=== PATIENT | male | born 1960 | race Caucasian/White ===

== ENCOUNTER 2018-01-17 19:27 | Observation (INO) | payer OTHER ==
[~2018-01-17] VITALS: Ht 180.3 cm; Wt 70.8 kg
[2018-01-17 19:30] VITALS: BP 128/80
[2018-01-17] MEDS ORDERED: KLONOPIN1 MG PO (19:43)
[2018-01-17] MEDS ORDERED: LISINOPRIL-HCT1 EACH PO (19:45)
[2018-01-17 20:23] LABS: ABSOLUTE EOSINOPHILS 0.1 thou/uL (0.0-0.7); ABSOLUTE LYMPHOCYTES 1.3 thou/uL (0.8-5.3); ABSOLUTE MONOCYTES 0.7 thou/uL (0.0-1.2); ABSOLUTE NEUTROPHILS 4.2 thou/uL (1.6-8.1); BASOPHILS 0.7 %; HEMATOCRIT 43.1 % (42.0-52.0); HEMOGLOBIN 14.4 gm/dL (14.0-18.0); LYMPHOCYTES 20.4 %; MCH 29.4 pg (26.0-34.0); MCHC 33.4 g/dL (28.0-37.0); MCV 87.9 fL (80.0-100.0); MONOCYTES 10.9 %; NUCLEATED RBCS 0 /100WBC; PLATELET COUNT* 191 thou/uL (150-400); RDW-CV 13.9 % (10.5-14.5); WBC 6.4 thou/uL (4.0-11.0)
[2018-01-17 20:33] LABS: ANION GAP 5 mmol/L (7-16); BUN 17 mg/dL (7-18); CHLORIDE 106 mmol/L (98-107); CO2 31 mmol/L (21-32); GLUCOSE 99 mg/dL (70-99); POTASSIUM 3.9 mmol/L (3.5-5.1); SODIUM 142 mmol/L (136-145)
[2018-01-17 20:44] LABS: ALBUMIN 3.5 g/dL (3.4-5.0); ALKALINE PHOSPHATASE 51 U/L (46-116); LIPASE 168 U/L (73-393); NT-PRO BRAIN NAT PEPTIDE 43 pg/mL (<300); SGOT 19 U/L (15-37); SGPT 22 U/L (30-65); TOTAL BILIRUBIN 0.3 mg/dL (<0.1-1.0); TROPONIN-I LEVEL <0.06 ng/mL (<0.06)
[2018-01-17 20:56] LABS: APTT 23.9 Seconds (25.0-31.3)
[2018-01-17 21:45] VITALS: BP 112/75
[2018-01-17 22:00] VITALS: BP 104/73
[2018-01-18] VITALS (15 sets, daily range): BP systolic 95–135; BP diastolic 41–84
[2018-01-18 10:19] LABS: ANION GAP 7 mmol/L (7-16); BUN 14 mg/dL (7-18); CALCIUM 8.8 mg/dL (8.5-10.1); CHLORIDE 109 mmol/L (98-107); CHOLESTEROL 146 mg/dL (<200); CO2 28 mmol/L (21-32); CREATININE 0.9 mg/dL (0.6-1.3); GLUCOSE 95 mg/dL (70-99); HDL CHOLESTEROL 51 mg/dL (>40); LDL CHOLESTEROL 82 mg/dL (<100); POTASSIUM 4.1 mmol/L (3.5-5.1); SODIUM 144 mmol/L (136-145); TC:HDL 2.9 Ratio (Not establshd); TRIGLYCERIDE 69 mg/dL (<150); VLDL 14 mg/dL (<40)
[2018-01-18 10:21] LABS: SERUM ASSESSMENT Clear
[2018-01-18 10:51] LABS: APTT 24.9 Seconds (25.0-31.3); INR 1.1; PROTIME 10.3 Seconds (9.20-11.50)
--- NOTE | 2018-01-18 17:49 | 2DMMODE ---
[place] [address] 2 D/M-MODE ECHOCARDIOGRAM Name: DWAYNE RICO Room: [address] M.R.#: [id number] Admission: 01/17/18 Attend Phys: Kishore Quick, Discharge: Date of : 62 Date of Service: 01/18/18 1749 Report #: [id number] THIS REPORT FOR: //name// APPROVED REPORT Study performed: 01/18/2018 16:08:34 EXAM: Comprehensive 2D, Doppler, and color-flow Echocardiogram Patient Location: In-Patient Room #: [facility] Status: routine BSA: 1.92 HR: 46 bpm BP: 95/41 mmHg Rhythm: NSR Other Information Study Quality: Good Indications CAD Chest Pain 2D Dimensions LVEF(%): 56.19 (>50%) IVSd: 11.54 (7-11mm) LVOT Diam: 21.55 (18-24mm) LVDd: 39.10 mm PWd: 10.83 (7-11mm) Ascending Ao: 35.37 (22-36mm) LVDs: 27.81 (25-40mm) Aortic Root: 38.53 mm Figueroa's LVEF: 56.19 % Volumes Left Atrial Volume (Systole) LA ESV Index: 19.60 mL/m2 Aortic Valve AoV Peak Tigre.: 1.19 m/s AO Peak Gr.: 5.68 mmHg LVOT Max P.13 mmHg AO Mean Gr.: 2.65 mmHg LVOT Mean P.33 mmHg LVOT Max V: 0.88 m/s AO V2 VTI: 23.39 cm LVOT Mean V: 0.52 m/s NOEL (VTI): 3.13 cm2 LVOT V1 VTI: 20.07 [place] [id number] 2 D/M-MODE ECHOCARDIOGRAM Name: TRISHADWAYNE Room: [address]R.#: [id number] Admission: 01/17/18 Attend Phys: Kishore Quick, Discharge: Date of : 62 Date of Service: 01/18/18 1749 Report #: [id number] E/A Ratio: 1.14 MV Decel. Time: 242.35 ms MV E Max Tigre.: 0.67 m/s MV PHT: 70.28 ms MVA (PHT): 3.13 cm2 TDI E/Lateral E': 6.70 E/Medial E': 5.58 Medial E' Tigre.: 0.12 m/s Lateral E' Tigre.: 0.10 m/s Pulmonary Valve PV Peak Tigre.: 0.73 m/s PV Peak Gr.: 2.15 mmHg Left Ventricle The left ventricle is normal size. There is normal LV segmental wall motion. There is normal left ventricular wall thickness. Left ventricular systolic function is normal. LVEF is 55-60%. The left ventricular diastolic function is normal. Right Ventricle The right ventricle is normal size. The right ventricular systolic function is normal. Atria The left atrium size is normal. The right atrium size is normal. Aortic Valve The aortic valve is normal in structure. Trace aortic regurgitation. There is no aortic valvular stenosis. Mitral Valve The mitral valve is normal in structure. There is no mitral valve regurgitation noted. No evidence of mitral valve stenosis. Tricuspid Valve The tricuspid valve is normal in structure. Unable to assess PA pressure. Trace tricuspid regurgitation. Pulmonic Valve The pulmonary valve is normal in structure. Trace pulmonic regurgitation. Great Vessels The aortic root is normal in size. IVC [place] [id number] 2 D/M-MODE ECHOCARDIOGRAM Name: DWAYNE RICO Room: [address] MLaura.#: [id number] Admission: 01/17/18 Attend Phys: Kishore Quick, Discharge: Date of : 62 Date of Service: 01/18/18 1749 Report #: [id number] collapses with >50% inspiration Pericardium There is no pericardial effusion. <Conclusion> The left ventricle is normal size. There is normal left ventricular wall thickness. Left ventricular systolic function is normal. LVEF is 55-60%. The left ventricular diastolic function is normal. Trace aortic regurgitation. IVC is normal in size and collapses with >50% inspiration <ELECTRONICALLY SIGNED> By: Jason Osborne MD, FACC 01/18/18 1749 174 174 Jason Osborne MD, FACC /INF
--- NOTE | 2018-01-18 17:52 | EKG ---
[place] [address] ELECTROCARDIOGRAM REPORT Name: DWAYNE RICO [address]: [address]#: [id number] Admission: 01/17/18 Attend Phys: Kishore Quick MD Discharge: Date of : 62 Report #: [id number] THIS REPORT FOR: //name// [facility] ED Test Date: 2018-01-17 Test Time: 19:32:45 Pat Name: DWAYNE RICO Department: Room: Gender: M Manager Epic: : 1960 Requested By: Dona Dawkins Order Number: [id number] MD: Jason Osborne Measurements Intervals [place] Rate: 67 P: 26 [place]: 141 QRS: 30 QRSD: 99 T: 37 QT: 413 QTc: 436 Interpretive Statements Sinus rhythm Multiple ventricular premature complexes No previous ECG available for comparison Electronically Signed On 01-18-2018 17:52:16 CDT by Jason Osborne [email or web address] <ELECTRONICALLY SIGNED> By: Jason Osborne MD, [facility] 01/18/18 1752 31 31 Jason Osborne MD, FACC /EPI
--- NOTE | 2018-01-18 17:53 | EKG ---
[place] [address] ELECTROCARDIOGRAM REPORT Name: DWAYNE RICO Room: [address] M.R.#: [id number] Admission: 01/17/18 Attend Phys: Kishore Quick MD Discharge: Date of : 62 Report #: [id number] THIS REPORT FOR: //name// [facility] Test Date: 2018-01-18 Test Time: 06:24:03 Pat Name: DWAYNE RICO Department: Room: [address] Gender: M Manager Local: Mahesh Sherman : 1960 Requested By: Dona Dawkins Order Number: [id number] Chasidy MD: Jason Osborne Measurements Intervals [place] Rate: 51 P: 19 NE: 152 QRS: 19 QRSD: 108 T: 22 QT: 488 QTc: 450 Interpretive Statements Sinus rhythm No previous ECG available for comparison Electronically Signed On 01-18-2018 17:53:41 CDT by Jason Osborne [email or web address] <ELECTRONICALLY SIGNED> By: Jason Osborne MD, [facility] 01/18/18 1753 0624 06 Jason Osborne MD, FACC /EPI
--- NOTE | 2018-01-18 17:56 | EKG ---
[place] [address] ELECTROCARDIOGRAM REPORT Name: DWAYNE RICO Room: [address] M.R.#: [id number] Admission: 01/17/18 Attend Phys: Kishore Quick MD Discharge: Date of : 62 Report #: [id number] THIS REPORT FOR: //name// [facility] Test Date: 2018-01-18 Test Time: 16:02:59 Pat Name: DWAYNE RICO Department: Room: [address] Gender: M Tree Faller: 28 : 1960 Requested By: Freddy Lora Order Number: [id number] Chasidy MD: Jason Osborne Measurements Intervals [place] Rate: 50 P: 16 [place]: 169 QRS: 23 QRSD: 93 T: 26 QT: 460 QTc: 420 Interpretive Statements Sinus rhythm Ventricular premature complex No previous ECG available for comparison Electronically Signed On 01-18-2018 17:56:23 CDT by Jason Osborne [email or web address] <ELECTRONICALLY SIGNED> By: Jason Osborne MD, [facility] 01/18/18 1756 1602 1602 Jason Osborne MD, [facility] /EPI
[2018-01-19] VITALS: BP 109/69
[2018-01-19 04:00] VITALS: BP 127/84
[2018-01-19 04:45] LABS: HEMATOCRIT 44.4 % (42.0-52.0); MCH 29.8 pg (26.0-34.0); MCHC 33.8 g/dL (28.0-37.0); MCV 88.1 fL (80.0-100.0); MPV 9.1 fl. (7.2-11.1); RBC 5.04 mil/uL (4.50-6.00); RDW-CV 13.8 % (10.5-14.5); WBC 6.4 thou/uL (4.0-11.0)
[2018-01-19 05:06] LABS: CREATININE 0.8 mg/dL (0.6-1.3); TROPONIN-I LEVEL <0.06 ng/mL (<0.06)
[2018-01-19 08:00] VITALS: BP 131/74
[2018-01-19] MEDS ORDERED: BRILINTA90 MG PO (10:28)
[2018-01-19] MEDS ORDERED: ASPIR 8181 MG PO (10:28)
[2018-01-19] MEDS ORDERED: ATORVASTATIN CA40 MG PO (10:28)
[2018-01-19 10:57] VITALS: BP 131/74
[2018-01-19 11:48] VITALS: BP 131/74
[2018-01-19] MEDS ORDERED: NITROGLYCERIN0.4 MG SUBLING (11:54)
[2018-01-19 12:27] VITALS: BP 127/72
--- NOTE | 2018-01-19 12:51 | EKG ---
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 Architect: : 1960 Requested By: Freddy Lora Order Number: [id number] Chasidy MD: Freddy Lora Measurements Intervals [place] Rate: 51 P: 34 [place]: 144 QRS: 33 QRSD: 103 T: 28 QT: 481 QTc: 444 Interpretive Statements Sinus bradycardia Multiple premature complexes, vent & supraven Compared to ECG 01/18/2018 16:02:59 pac no longer noted Electronically Signed On 01-19-2018 12:51:52 CDT by Freddy Lora [email or web address] <ELECTRONICALLY SIGNED> By: Freddy Lora MD, [facility] 01/19/18 1251 1 1 Freddy Lora MD, [facility] /EPI
--- NOTE | 2018-01-19 15:12 | CARD ---
[address] [address] CARDIAC CATH REPORT Name: DWAYNE RICO Room: [address] Jaqui Rust#: [id number] Admission: 01/17/18 Attend Phys: Kishore Quick MD Discharge: 01/19/18 Date of : 62 Report #: [id number] THIS REPORT FOR: //name// APPROVED REPORT Study performed: 01/18/2018 13:02:06 Patient Details Patient Status: In-Patient Room #: The patient is a 57 year-old male Event Personnel Jason Osborne Surgeon Assistant, Little [place] RTR Monitor, [place] RTR Monitor, Stella Garber RN RN, Bernadette Steele RTR Scrub, Freddy Lora Net Finisher Procedures Performed Art Access - R radial artery , Left Heart Catheterization, PTCA with Stenting Indication Unstable angina Risk Factors Hypertension Admission/Lab Medications/Medications given during procedure Glycoprotein IllbIlla Inhibitors, Heparin Unfract. Procedure Narrative The patient was brought electively to the Cardiac Catheterization Laboratory and was prepped and draped in a sterile manner. The right wrist was infiltrated with 1% Lidocaine subcutaneous anesthesia. A Slender Glidesheath sheath was inserted into the right radial artery. Coronary angiography was performed using coronary diagnostic catheters. The right coronary system was accessed and visualized with a DCR: Pyrites 4.0 5fr catheter. The left coronary system was accessed and visualized with a DCR: Pyrites 4.0 5fr catheter. The left ventricle was accessed and visualized with a 5Fr pigtail catheter. Left ventricular/Aortic Valve gradient assessed via catheter pullback. Left ventriculogram was performed in SOARES projection. Closure device was deployed with a 6 Fr Vasc-Band Reg 24cm. The patient tolerated the procedure well and there were no complications associated with the procedure. [place] [address] CARDIAC CATH REPORT Name: TRISHADWAYNE Room: [address] Jaqui Rust#: [id number] Admission: 01/17/18 Attend Phys: Kishore Quick MD Discharge: 01/19/18 Date of : 62 Report #: [id number] Intraoperative Conscious Sedation Sedation start time: 2:18 Case end Time: 3:30 Fentanyl 50 mcg Versed 2 mg Fluoro Time: 8.2 minutes Dose: DAP [id number] cGycm2 1969.36 mGy Contrast Type and Amount: Omnipaque 200 ml Diagnostic Cath Left Main Normal LAD Normal Diagonal 1 Large branched and subtotally occluded at the proximal portion of the larger branch. Distal diagonal fills faintly. Circumflex Normal OM1 50% ostial stenosis OM2 Normal OM3 Normal Right Coronary Very large in caliber vessel that is minimally up to 10% plaque distally. R PDA Large caliber vessel that is 20% narrowed in its midportion. RPLV Large and branching vessel that is 10% narrowed in its midportion. Left Ventriculography The left ventricular ejection fraction is estimated to be 55-60%. Left ventricular wall motion abnormalities are not present. There is no mitral insufficiency. Hemodynamics The aortic pressure is 102/58 mmHg with a mean of 80 mmHg. The left ventricular pressure is 106/3 mmHg with a mean of mmHg. The left ventricular end diastolic pressure is 10 mmHg. There was no gradient across the aortic valve upon pullback. Pullback from the left ventricle to the aorta revealed no gradient across the aortic valve. PCI Technique Lesion Anticoagulation was achieved with Heparin. iv bolus of aggrastat given Patient was preloaded with Plavix. Percutaneous coronary intervention was performed on the first diagnonal branch segment. The lesion stenosis prior to intervention was 100% with LESLIE 0 flow. A 6FR LAUNCHER EBU 3.5 Guide Catheter was used to [place] [address] CARDIAC CATH REPORT Name: DWAYNE RICO Room: [address] Jaqui Rust#: [id number] Admission: 01/17/18 Attend Phys: Kishore Quick MD Discharge: 01/19/18 Date of : 62 Report #: [id number] IG: BMW 190cm Interventional Guidewire was used to cross the lesion. BALLOON DILATION A Balloon catheter Mini Trek RX 2.0 X 8 was inserted and inflated up to 6.00atm for 17seconds. Repeat angiography revealed the following post-dilatation results: 70% stenosis. Additional Inflation: 6.00atm for 10seconds. Additional Inflation: 6.00atm for 10seconds. Second BMW wire was placed into the smaller bifurcation branch of the diagonal artery STENT DEPLOYMENT A bare metal stent Mini Vision 2.25 X 28 was inserted and inflated up to 7.00atm for 15seconds. Repeat angiography revealed the following post-stent deployment results: 0% stenosis. Additional Inflation: 9.00atm for 13seconds. Final angiography reveals 0 % stenosis with LESLIE 3 flow. COMMENTS Decision was made not to intervene on the small bifurcation branch of the diagonal artery since the stenosis would require stenting a bifurcation lesion, and the vessel was small Conclusion 1. large diagonal branch of the LAD was noted to bifurcate. Small branch had a 90% ostial stenosis. Large branch was occluded 2. successful placement of a long bare metal stent into the larger branch of the diagonal artery Recommendations Cardiac Rehabilitation Referral Aggressive Medical Therapy Medications Administered Clopidogrel Diagnostic Cath Approved by: Jason Osborne MD Date/Time: <ELECTRONICALLY SIGNED> By: Freddy Lora MD, [facility] 01/19/18 151 11 1512Davihaider Lora MD, FAC /INF
== END 2018-01-19 14:05 | disposition home or self-care (01) ==
LOC: M.ERS 19:27 → M.TBA-ER 20:51 → M.2W 20:51
PROVIDERS: Internal Medicine Cardiovascular Disease; Nurse Practitioner Family; Personal Emergency Response Attendant; ADMIT Internal Medicine
DX: I25.110 Atherosclerotic heart disease of native coronary artery with unstable angina pectoris (principal); I10 Essential (primary) hypertension; F41.9 Anxiety disorder, unspecified; R41.3 Other amnesia; M06.9 Rheumatoid arthritis, unspecified; M51.35 Other intervertebral disc degeneration, thoracolumbar region; R00.1 Bradycardia, unspecified; F41.0 Panic disorder [episodic paroxysmal anxiety]; I95.9 Hypotension, unspecified; F17.210 Nicotine dependence, cigarettes, uncomplicated; Z95.5 Presence of coronary angioplasty implant and graft

== ENCOUNTER 2018-01-22 00:14 | Observation (INO) | payer OTHER ==
[2018-01-22] VITALS (7 sets, daily range): BP systolic 104–128; BP diastolic 56–77
[~2018-01-22] VITALS: Ht 180.3 cm; Wt 73.5 kg
[~2018-01-22 00:14] MED LIST: ASPIR 8181 MG PO; ATORVASTATIN CA40 MG PO; BRILINTA90 MG PO; KLONOPIN1 MG PO; LISINOPRIL-HCT1 EACH PO; NITROGLYCERIN0.4 MG SUBLING
[2018-01-22 00:49] LABS: ABSOLUTE BASOPHILS 0.1 thou/uL (0.0-0.2); ABSOLUTE EOSINOPHILS 0.3 thou/uL (0.0-0.7); ABSOLUTE LYMPHOCYTES 1.6 thou/uL (0.8-5.3); ABSOLUTE MONOCYTES 0.7 thou/uL (0.0-1.2); ABSOLUTE NEUTROPHILS 5.1 thou/uL (1.6-8.1); BASOPHILS 0.7 %; EOSINOPHILS 3.7 %; HEMATOCRIT 41.4 % (42.0-52.0); LYMPHOCYTES 20.3 %; MCH 29.9 pg (26.0-34.0); MCHC 33.9 g/dL (28.0-37.0); MONOCYTES 8.9 %; NUCLEATED RBCS 0 /100WBC; PLATELET COUNT* 184 thou/uL (150-400); POLYS 66.4 %; RBC 4.71 mil/uL (4.50-6.00); RDW-CV 13.8 % (10.5-14.5); WBC 7.6 thou/uL (4.0-11.0)
[2018-01-22 00:50] LABS: ANION GAP 5 mmol/L (7-16); BUN 20 mg/dL (7-18); CALCIUM 8.3 mg/dL (8.5-10.1); CHLORIDE 105 mmol/L (98-107); CO2 28 mmol/L (21-32); CREATININE 1.5 mg/dL (0.6-1.3); GLUCOSE 130 mg/dL (70-99); POTASSIUM 3.6 mmol/L (3.5-5.1); SODIUM 138 mmol/L (136-145)
[2018-01-22 01:01] LABS: ALBUMIN 3.2 g/dL (3.4-5.0); ALKALINE PHOSPHATASE 54 U/L (46-116); LIPASE 203 U/L (73-393); MAGNESIUM 1.9 mg/dL (1.8-2.4); NT-PRO BRAIN NAT PEPTIDE 28 pg/mL (<300); SGOT 14 U/L (15-37); SGPT 19 U/L (30-65); TOTAL BILIRUBIN 0.2 mg/dL (<0.1-1.0); TOTAL PROTEIN 6.4 g/dL (6.4-8.2); TROPONIN-I LEVEL <0.06 ng/mL (<0.06)
[2018-01-22] MEDS ORDERED: LISINOPRIL10 MG PO (03:15)
--- NOTE | 2018-01-22 03:49 | NUR ---
PT ARRIVED ON 2W ROOM 208 AT 0215. PT ALERT ORIENTED. DENIES CP OR DISCOMFORT. FALL RISK PRECAUTIONS IN PLACE. TELEMETRY SHOWS SB. WILL CONTINUE TO MONITOR.
--- NOTE | 2018-01-22 12:42 | EKG ---
[place] [address] ELECTROCARDIOGRAM REPORT Name: DWAYNE RICO Room: [address] IN ..#: [id number] Admission: 01/22/18 Attend Phys: Elvira Edward MD Discharge: Date of : 62 Report #: [id number] THIS REPORT FOR: //name// [facility] ED Test Date: 2018-01-22 Test Time: 00:20:09 Pat Name: DWAYNE RICO Department: Room: Gender: Carbon Grinder: RAYSHAWN : 1960 Requested By: Jason Guzman Order Number: [id number] MD: Markie Tovar Measurements Intervals [place] Rate: 66 P: 28 [place]: 149 QRS: 43 QRSD: 96 T: 22 QT: 398 QTc: 417 Interpretive Statements Sinus rhythm Ventricular premature complex Borderline T abnormalities, anterior leads Compared to ECG 01/19/2018 08:22:30 Ventricular premature complex(es) now present T-wave abnormality now present Sinus bradycardia no longer present Electronically Signed On 01-22-2018 12:42:11 CDT by Markie Tovar [email or web address] <ELECTRONICALLY SIGNED> By: Markie Tovar MD, FAC 01/22/18 1242 0020 0020 Markie oTvar MD, [facility] /EPI
--- NOTE | 2018-01-22 12:46 | NUR ---
ASSUMED CARE OF PATIENT THIS AM AT 0730. PATIENT IS ALERT AN ORIENTED X 4. HE DENIES CHEST PAIN AND DISCOMFORT. TELE SHOWS SR TO S-ANIYA. IV FLUIDS STARTED PER ORDER. LABS DRAWN BY LAB THIS AM. DIET ORDERED BY DR DORSEY AND PATIENT GIVEN A DIET TRAY. PATIENT CONSUMED BOTH HIS LUNCH AND DINNER TRAYS. CARDIOLOGY IN TO SEE PATIENT AND TOLD PATIENT THAT HE COULD DISCHARGE. PATIENT IS NOW ANXIOUS FOR DISCHARGE PAPERS TO BE WRITTEN. HE HAS BEEN UP TO THE BATHROOM WITH A UNSTEADY GAIT. REMINDED TO CALL OUT FOR HELP. BED ALARM IS ON. CALL LIGHT IS IN REACH.
[2018-01-22] MEDS ORDERED: PLAVIX 75 MG TA75 M1 PO (14:01)
[2018-01-22] MEDS ORDERED: IMDUR 30 MG TAB30 M1 PO (14:04)
--- NOTE | 2018-02-10 10:50 | CON ---
[address] [address] CONSULTATION Name: DWAYNE RICO Room: [address] Jaqui Rust#: [id number] Admission: 01/22/18 Attend Phys: Elvira Edward MD Discharge: 01/22/18 Date of : 62 Report #: [id number] THIS REPORT FOR: //name// CC: [facility] physician/PCP Elvira Edward FILE CONVERSION OPERATOR: Jason Osborne MD. CHIEF COMPLAINT: Chest pain. HISTORY OF PRESENT ILLNESS: The patient is a 57-year-old man, status post PCI here at this hospital. He had onset of chest pressure or tightness yesterday. He took 2 nitro, and his symptoms mostly resolved, and he went to the Emergency Room. His ECG on presentation was normal and serial cardiac troponin levels are normal x 2 sets. Overall, he has been feeling fairly well, but has had concerns because he is running out of Brilinta that was prescribed on discharge, and he could not afford even with a prescription discount card for the Brilinta. He denies shortness of breath, orthopnea or PND. He denies exertional symptoms of chest pressure or tightness. The symptoms occurred at rest. PAST MEDICAL HISTORY: Significant for PCI to an occluded diagonal branch, which was large and treated with a single bare metal stent. His LAD and left main were normal. His OM1 had a 50% ostial stenosis, and he had mild disease in the right coronary artery. This was a 2.25 x 28 mm bare metal stent in the diagonal. There was a smaller sub-branch that had a 90% ostial stenosis, which was managed medically. He has normal LV function, hyperlipidemia. HOME MEDICATIONS: Include Brilinta 90 mg p.o. b.i.d., lisinopril 10 mg daily, aspirin, atorvastatin 40 mg daily. SOCIAL HISTORY: He is a prior smoker. REVIEW OF SYSTEMS: GASTROINTESTINAL: No melena, hematochezia. GENITOURINARY: No dysuria or hematuria. CARDIOVASCULAR: Positive chest pain. No shortness of breath, orthopnea, no PND, no palpitations. NEUROLOGIC: Denies seizures. Denies slurred speech, numbness or weakness. PSYCHIATRIC: He does have a history of forgetfulness and prior head trauma. HEMATOLOGIC: No anemia or bleeding disorders. RENAL: [place] [address] CONSULTATION Name: DWAYNE RICO Room: [address] Jaqui Rust#: [id number] Admission: 01/22/18 Attend Phys: Elvira Edward MD Discharge: 01/22/18 Date of : 62 Report #: [id number] PHYSICAL EXAMINATION: VITAL SIGNS: Blood pressure is 104/58, pulse is 47-53. GENERAL: He is a pleasant middle-aged male who is alert, in no apparent distress. NECK: Supple. No jugular venous distention. CARDIOVASCULAR: Regular. LUNGS: Clear to auscultation. ABDOMEN: Soft, nontender. EXTREMITIES: No peripheral edema. LABORATORY DATA: Electrocardiogram shows sinus rhythm with kind of nonspecific flattening of T waves, but no dynamic ST-T abnormality. Troponin I is 0.06 x 2 sets. Hemoglobin is 14.0, white blood cell count 7.6, platelet counts Sodium is 138, potassium 3.6, chloride 105, BUN is 20, creatinine is 1.5. IMPRESSION AND PLAN: 1. Angina. I suspect this is his branch vessel disease. He is not behaving like acute stent thrombosis. He reports he has been compliant with Brilinta, but has difficulty with refills. I am also going to start him on Imdur 30 mg daily. 2. Coronary artery disease, status post percutaneous coronary intervention. Based on his cost issues with Brilinta, I think we need to place him on a generic Plavix for the time being. We can arrange for samples of Brilinta later in the office as an outpatient. 3. Bradycardia. This seems fairly stable. Reviewing his heart rates and blood pressures, we have to continue to monitor this clinically as an outpatient. 4. Hyperlipidemia. Continue with statin. <ELECTRONICALLY SIGNED> By: Markie Tovar MD, FACC 02/10/18 1050 1131 1333Markie Tovar MD, FACC /nt
== END 2018-01-22 14:30 | disposition home or self-care (01) ==
LOC: M.ERS 00:14 → M.2W 01:26 → M.TBA-ER 01:26 → M.2W 02:58
PROVIDERS: Emergency Medicine Emergency Medical Services; ADMIT Internal Medicine
DX: I25.119 Atherosclerotic heart disease of native coronary artery with unspecified angina pectoris (principal); I10 Essential (primary) hypertension; F41.9 Anxiety disorder, unspecified; M06.9 Rheumatoid arthritis, unspecified; E78.5 Hyperlipidemia, unspecified; R00.1 Bradycardia, unspecified; F17.210 Nicotine dependence, cigarettes, uncomplicated; Z72.89 Other problems related to lifestyle; Z95.5 Presence of coronary angioplasty implant and graft

== ENCOUNTER 2018-02-06 22:57 | Inpatient (IN) | payer OTHER ==
[~2018-02-06] VITALS: Ht 180.3 cm; Wt 76.7 kg
[~2018-02-06 22:57] MED LIST changes: +IMDUR 30 MG TAB30 M1 PO; +LISINOPRIL10 MG PO; +PLAVIX 75 MG TA75 M1 PO
[2018-02-06 23:00] VITALS: BP 137/76
[2018-02-06 23:34] LABS: ABSOLUTE EOSINOPHILS 0.2 thou/uL (0.0-0.7); ABSOLUTE LYMPHOCYTES 1.8 thou/uL (0.8-5.3); ABSOLUTE MONOCYTES 0.6 thou/uL (0.0-1.2); ABSOLUTE NEUTROPHILS 4.6 thou/uL (1.6-8.1); BASOPHILS 0.5 %; EOSINOPHILS 2.4 %; HEMOGLOBIN 14.1 gm/dL (14.0-18.0); INR 1.1; LYMPHOCYTES 24.6 %; MCH 29.4 pg (26.0-34.0); MCHC 33.7 g/dL (28.0-37.0); MCV 87.2 fL (80.0-100.0); MONOCYTES 8.6 %; MPV 9.3 fl. (7.2-11.1); NUCLEATED RBCS 0 /100WBC; PLATELET COUNT* 168 thou/uL (150-400); POLYS 63.9 %; PROTIME 10.8 Seconds (9.20-11.50); RBC 4.81 mil/uL (4.50-6.00); RDW-CV 13.7 % (10.5-14.5); WBC 7.2 thou/uL (4.0-11.0)
[2018-02-06 23:37] LABS: TROPONIN-I LEVEL <0.06 ng/mL (<0.06)
[2018-02-06 23:46] LABS: CALCIUM 8.9 mg/dL (8.5-10.1); CREATININE 1.1 mg/dL (0.6-1.3); POTASSIUM 3.7 mmol/L (3.5-5.1)
[2018-02-06 23:51] LABS: ALBUMIN 3.7 g/dL (3.4-5.0); TOTAL BILIRUBIN 0.5 mg/dL (<0.1-1.0); TOTAL PROTEIN 6.4 g/dL (6.4-8.2)
[2018-02-07] VITALS (11 sets, daily range): BP systolic 77–139; BP diastolic 38–72
[2018-02-07 00:21] LABS: URINE BILIRUBIN NEGATIVE (Negative); URINE BLOOD 1+ (Negative); URINE CLARITY CLEAR; URINE COLOR STRAW; URINE GLUCOSE-RANDOM NEGATIVE (Negative); URINE KETONES TRACE (Negative); URINE LEUKOCYTES-REFLEX NEGATIVE (Negative); URINE NITRITE-REFLEX NEGATIVE (Negative); URINE PROTEIN NEGATIVE (Negative); URINE SPECIFIC GRAVITY <= 1.005 (1.005-1.030); URINE UROBILINOGEN 0.2 E.U./dl (0.2-1.0)
[2018-02-07 01:00] LABS: CASTS None Seen /LPF (None Seen); SQUAMOUS NONE SEEN /LPF (0-3); URINE RBC 0-2 Rare /HPF (0-2); URINE WBC-REFLEX None Seen /HPF (0-5)
[2018-02-07 01:01] LABS: BACTERIA-REFLEX None Seen /HPF (None Seen); CRYSTALS None Seen /LPF (None Seen)
--- NOTE | 2018-02-07 11:14 | EKG ---
[place] [address] ELECTROCARDIOGRAM REPORT Name: DWAYNE RICO Room: [address] ADM IN M.R.#: [id number] Admission: 02/07/18 Attend Phys: Nehemias Barrera Discharge: Date of : 62 Report #: [id number] THIS REPORT FOR: //name// [facility] ED Test Date: 2018-02-06 Test Time: 23:00:24 Pat Name: DWAYNE RICO Department: Room: [facility] [place] Gender: M Rest Room Maid: : 1960 Requested By: Emi Tripathi Order Number: [id number] MD: Elías Doshi Measurements Intervals [place] Rate: 71 P: 32 [place]: 164 QRS: 24 QRSD: 98 T: 20 QT: 406 QTc: 442 Interpretive Statements Sinus rhythm Ventricular trigeminy Compared to ECG 01/22/2018 00:20:09 T-wave abnormality no longer present Electronically Signed On 02-07-2018 11:14:32 CDT by Elías Doshi [email or web address] <ELECTRONICALLY SIGNED> By: Elías Doshi MD, [facility] 02/07/18 1114 230 2300 Elías Doshi MD, [facility] /EPI
--- NOTE | 2018-02-07 11:14 | EKG ---
[place] [address] ELECTROCARDIOGRAM REPORT Name: DWAYNE RICO Room: [address] ADM IN M.R.#: [id number] Admission: 02/07/18 Attend Phys: Nehemias Barrera Discharge: Date of : 62 Report #: [id number] THIS REPORT FOR: //name// [facility] ED Test Date: 2018-02-07 Test Time: 03:14:42 Pat Name: DWAYNE RICO Department: Room: [facility] Gender: M Global Implementation Manager: AP : 1960 Requested By: Emi Tripathi Order Number: [id number] MD: Elías Doshi Measurements Intervals [place] Rate: 53 P: 15 [place]: 155 QRS: 9 QRSD: 109 T: 19 QT: 491 QTc: 461 Interpretive Statements Sinus rhythm Compared to ECG 01/22/2018 00:20:09 Ventricular premature complex(es) no longer present T-wave abnormality no longer present Electronically Signed On 02-07-2018 11:14:45 CDT by Elías Doshi [email or web address] <ELECTRONICALLY SIGNED> By: Elías Doshi MD, [facility] 02/07/18 1114 0314 0314 Elías Doshi MD, [facility] /EPI
[2018-02-08] VITALS (8 sets, daily range): BP systolic 101–134; BP diastolic 47–93
[2018-02-08 05:15] LABS: HEMATOCRIT 42.3 % (42.0-52.0); HEMOGLOBIN 14.1 gm/dL (14.0-18.0); MCH 29.8 pg (26.0-34.0); MCHC 33.4 g/dL (28.0-37.0); MCV 89.4 fL (80.0-100.0); MPV 9.6 fl. (7.2-11.1); RBC 4.73 mil/uL (4.50-6.00); RDW-CV 13.5 % (10.5-14.5); WBC 7.8 thou/uL (4.0-11.0)
[2018-02-08 05:35] LABS: ALBUMIN 3.3 g/dL (3.4-5.0); CALCIUM 8.1 mg/dL (8.5-10.1); CREATININE 0.8 mg/dL (0.6-1.3); MAGNESIUM 2.1 mg/dL (1.8-2.4); POTASSIUM 4.2 mmol/L (3.5-5.1); TOTAL BILIRUBIN 0.3 mg/dL (<0.1-1.0); TOTAL PROTEIN 6.1 g/dL (6.4-8.2)
[2018-02-08 09:09] LABS: CALCIUM 7.7 mg/dL (8.5-10.1); PHOSPHORUS* 2.5 mg/dL (2.5-4.9); POTASSIUM 3.9 mmol/L (3.5-5.1)
[2018-02-09] VITALS: BP 136/67
[2018-02-09 04:00] VITALS: BP 106/43
[2018-02-09 05:39] LABS: HEMATOCRIT 38.3 % (42.0-52.0); HEMOGLOBIN 13.1 gm/dL (14.0-18.0); MCH 30.1 pg (26.0-34.0); MCHC 34.2 g/dL (28.0-37.0); MCV 88.1 fL (80.0-100.0); MPV 9.9 fl. (7.2-11.1); RBC 4.34 mil/uL (4.50-6.00); RDW-CV 13.3 % (10.5-14.5); WBC 6.8 thou/uL (4.0-11.0)
[2018-02-09 06:10] LABS: ALBUMIN 3.1 g/dL (3.4-5.0); CALCIUM 7.9 mg/dL (8.5-10.1); CREATININE 0.8 mg/dL (0.6-1.3); MAGNESIUM 1.9 mg/dL (1.8-2.4); POTASSIUM 3.6 mmol/L (3.5-5.1)
[2018-02-09 08:00] VITALS: BP 116/55
[2018-02-09 11:48] VITALS: BP 130/76
[2018-02-09 15:34] VITALS: BP 126/75
[2018-02-09 20:00] VITALS: BP 116/68
[2018-02-10] VITALS: BP 124/76
[2018-02-10 04:00] VITALS: BP 107/68
[2018-02-10 04:59] LABS: HEMATOCRIT 40.7 % (42.0-52.0); HEMOGLOBIN 13.7 gm/dL (14.0-18.0); MCH 29.7 pg (26.0-34.0); MCHC 33.7 g/dL (28.0-37.0); MCV 88.1 fL (80.0-100.0); MPV 9.6 fl. (7.2-11.1); RBC 4.62 mil/uL (4.50-6.00); WBC 6.2 thou/uL (4.0-11.0)
[2018-02-10 05:11] LABS: CALCIUM 8.3 mg/dL (8.5-10.1); CREATININE 0.9 mg/dL (0.6-1.3); POTASSIUM 3.5 mmol/L (3.5-5.1)
[2018-02-10 08:00] VITALS: BP 109/71
[2018-02-10] MEDS ORDERED: PACERONE 200 M200 M1 PO (09:37)
[2018-02-10 10:37] VITALS: BP 109/71
--- NOTE | 2018-02-18 16:18 | CON ---
[address] [address] CONSULTATION Name: DWAYNE RICO Room: [address] IN M.R.#: [id number] Admission: 02/07/18 Attend Phys: Nehemias Barrera Discharge: 02/10/18 Date of : 62 Report #: [id number] THIS REPORT FOR: //name// CC: [facility] physician/PCP Jose Paniagua DATE OF SERVICE: 02/07/2018 INDICATION: Chest pain and palpitations. HISTORY OF PRESENT ILLNESS: The patient is a 57-year-old gentleman who had percutaneous coronary intervention to the first diagonal branch on 01/17/2018 in the setting of non-ST elevation myocardial infarction. The patient has done relatively well since that time. Last night, he had midsternal chest discomfort associated with palpitations. In the Emergency Room, he was noted to have nonsustained ventricular tachycardia. He was placed on amiodarone. His heart rhythm has settled down. Presently, he exhibits a sinus bradycardia. His chest pain has resolved. He is without cardiac complaint at this time. Cardiac enzymes were unremarkable. EKG shows sinus bradycardia without acute ST or T-wave abnormality. PAST MEDICAL HISTORY: 1. Coronary artery disease with recent percutaneous coronary intervention as outlined above. 2. Bradycardia. 3. Hyperlipidemia. 4. Hypertension. 5. Anxiety. 6. Panic attacks. PAST SURGICAL HISTORY: Percutaneous coronary intervention as outlined above. FAMILY HISTORY: Coronary artery disease in a brother and father. SOCIAL HISTORY: The patient is a former smoker. He does not drink alcohol. ALLERGIES: TYLENOL, CYCLOBENZAPRINE, HYDROCODONE, IBUPROFEN, MORPHINE, NAPROSYN, OXYCODONE, PENICILLIN, TRAMADOL. HOME MEDICATIONS: Aspirin 81 mg daily, atorvastatin 40 mg at bedtime, clonazepam 1 mg p.o. q.8h., Plavix 75 mg daily, Imdur 30 mg daily, lisinopril 10 mg daily, Nitrostat p.r.n. REVIEW OF SYSTEMS: A 14-point review of systems as per HPI above, [place] [address] CONSULTATION Name: DWAYNE RICO Room: [address] IN [facility].#: [id number] Admission: 02/07/18 Attend Phys: Nehemias Barrera Discharge: 02/10/18 Date of : 62 Report #: [id number] PHYSICAL EXAMINATION: VITAL SIGNS: Stable. Blood pressure 97/53, pulse is 44 and regular. GENERAL: This is a pleasant gentleman in no distress. Mood and affect appropriate. HEENT: Extraocular muscles intact. Mucous membranes moist. NECK: Shows no jugular venous distention. There are no carotid bruits. CHEST: Reveals clear lung tran without wheeze or rales. CARDIAC: Reveals regular rhythm without gallop or murmur. ABDOMEN: Reveals normal bowel sounds. The abdomen is soft, nontender. EXTREMITIES: Shows no edema. Peripheral pulses 2+ and easily palpable. SKIN: Warm and dry. A 12-lead EKG shows sinus bradycardia without significant ST or T-wave abnormality. LABORATORY DATA: Electrolytes are within normal limits. Troponins are unremarkable. IMPRESSION AND RECOMMENDATION: 1. Unstable angina with nonsustained ventricular tachycardia. We will proceed with coronary angiography. Further intervention will be pending the results of that study. We will continue dual antiplatelet therapy at this time. 2. Nonsustained ventricular tachycardia, etiology likely due to ischemia. Electrolytes are within normal limits. We will follow up with cardiac catheterization and further intervention as needed. 3. Hyperlipidemia. Continue atorvastatin at current dose. 4. Hypertension, presently controlled on current cardiac regimen. <ELECTRONICALLY SIGNED> By: Jason Osborne MD, FACC 02/18/18 1618 [id number] martin Osborne MD, FACC /nt
--- NOTE | 2018-02-18 17:49 | CARD ---
[facility] [address] [place] [address] CARDIAC CATH REPORT Name: DWAYNE RICO Room: [address] IN M.R.#: [id number] Admission: 02/07/18 Attend Phys: Nehemias Barrera Discharge: 02/10/18 Date of : 62 Report #: [id number] THIS REPORT FOR: //name// APPROVED REPORT Study performed: 02/07/2018 13:02:48 Patient Details Patient Status: In-Patient Room #: ICU1 The patient is a 57 year-old male Event Personnel Jason Osborne Photographer Motion Picture, Tracy Cash RN Monitor, Ana Maria Dillard RN, Bernadette Steele RTR Scrub Procedures Performed Art Access - R femoral artery* Left Heart Cath w/or w/o Coronaries Hemostasis w/ Mynx Indication Arrhythmia Previous Procedures/Diagnoses Previous PCI Procedure Narrative The patient was brought urgentlyelectively to the Cardiac Catheterization Laboratory and was prepped and draped in a sterile manner. The right femoral was infiltrated with 2% Lidocaine subcutaneous anesthesia. The right femoral accessed via ultrasound guidance. A 6fr Ultimum Sheath sheath was inserted into the right femoral artery. Coronary angiography was performed using coronary diagnostic catheters. The right coronary system was accessed and visualized with a 6 Fr JR4 catheter. The left coronary system was accessed and visualized with a 6Fr JL4 catheter. The left ventricle was accessed and visualized with a 6Fr Angled Pigtail catheter. Closure device was deployed with a 6 Fr MynxGrip. The patient tolerated the procedure well and there were no complications associated with the procedure. There was no hematoma. Intraoperative Conscious Sedation Fentanyl 50 mcg Fluoro Time: 4.1 minutes Dose: 474 [place] [address] CARDIAC CATH REPORT Name: DWAYNE RICO Room: [address] IN [facility].#: [id number] Admission: 02/07/18 Attend Phys: Nehemias Barrera Discharge: 02/10/18 Date of : 62 Report #: [id number] Contrast Type and Amount: Visipaque 60 ml Diagnostic Cath Left Main Normal LAD The proximal vessels normal. There is minimal tenderness of plaquing in the midportion. Distally the vessel appears normal. Diagonal 1 Large in branch. The vessel appears normal. Circumflex Small nondominant vessel that has 20% plaquing noted in the distal portion of the vessel. OM1 Very small in caliber and normal. OM2 Small in caliber and normal. Right Coronary Very large dominant vessel with minimal 10% plaquing in the distal portion. R PDA 10% narrowing in the midportion of the vessel. RPLV Large branched vessel with 10% plaquing proximally. Hemodynamics The aortic pressure is 103/54 mmHg with a mean of 65 mmHg. The left ventricular pressure is 102/-1 mmHg with a mean of mmHg. The left ventricular end diastolic pressure is 9 mmHg. Conclusion 1. Nonocclusive mild coronary artery plaquing as outlined above. 2. Normal left heart catheterization. Recommendations 1. Continue medical management and risk factor modification. <ELECTRONICALLY SIGNED> By: Jason Osborne MD, FACC 02/18/18 1749 [id number] martin Osborne MD, FACC /INF
== END 2018-02-10 14:13 | disposition home or self-care (01) | DRG 287 ==
LOC: M.ERS 22:57 → M.TBA-ER 02-07 00:18 → M.ICU 02-07 00:18 → M.2W 02-07 14:28
PROVIDERS: Emergency Medicine; Internal Medicine; ADMIT Internal Medicine
PROC: 4A023N7 Measurement of Cardiac Sampling and Pressure, Left Heart, Percutaneous Approach (ICD-10-PCS; principal; 2018-02-07)
PROC: B211YZZ Fluoroscopy of Multiple Coronary Arteries using Other Contrast (ICD-10-PCS; principal; 2018-02-07)
DX: I25.110 Atherosclerotic heart disease of native coronary artery with unstable angina pectoris (principal); I47.2 Ventricular tachycardia; F41.0 Panic disorder [episodic paroxysmal anxiety]; F41.9 Anxiety disorder, unspecified; E78.5 Hyperlipidemia, unspecified; I10 Essential (primary) hypertension; F17.210 Nicotine dependence, cigarettes, uncomplicated; M06.9 Rheumatoid arthritis, unspecified; G62.9 Polyneuropathy, unspecified; Z95.5 Presence of coronary angioplasty implant and graft; Z88.6 Allergy status to analgesic agent; Z88.0 Allergy status to penicillin; Z88.8 Allergy status to other drugs, medicaments and biological substances; Z82.49 Family history of ischemic heart disease and other diseases of the circulatory system; Z79.82 Long term (current) use of aspirin; Z79.899 Other long term (current) drug therapy

== ENCOUNTER 2018-02-14 11:53 | Emergency (ER) | payer OTHER ==
[~2018-02-14] VITALS: Ht 180.3 cm; Wt 73.0 kg
[~2018-02-14 11:53] MED LIST changes: +PACERONE 200 M200 M1 PO
[2018-02-14 11:54] VITALS: BP 111/75
[2018-02-14 12:15] LABS: ABSOLUTE EOSINOPHILS 0.2 thou/uL (0.0-0.7); ABSOLUTE MONOCYTES 0.6 thou/uL (0.0-1.2); ABSOLUTE NEUTROPHILS 4.6 thou/uL (1.6-8.1); BASOPHILS 0.7 %; EOSINOPHILS 2.5 %; HEMATOCRIT 41.2 % (42.0-52.0); HEMOGLOBIN 14.2 gm/dL (14.0-18.0); MCH 29.8 pg (26.0-34.0); MCHC 34.4 g/dL (28.0-37.0); MCV 86.7 fL (80.0-100.0); MONOCYTES 9.1 %; NUCLEATED RBCS 0 /100WBC; PLATELET COUNT* 162 thou/uL (150-400); POLYS 71.7 %; RBC 4.75 mil/uL (4.50-6.00); RDW-CV 13.6 % (10.5-14.5); WBC 6.4 thou/uL (4.0-11.0)
[2018-02-14 12:27] LABS: APTT 24.8 Seconds (25.0-31.3); INR 1.1; PROTIME 10.6 Seconds (9.20-11.50)
[2018-02-14 12:31] LABS: ANION GAP 7 mmol/L (7-16); BUN 13 mg/dL (7-18); CALCIUM 8.1 mg/dL (8.5-10.1); CHLORIDE 105 mmol/L (98-107); CO2 27 mmol/L (21-32); CREATININE 0.9 mg/dL (0.6-1.3); GLUCOSE 87 mg/dL (70-99); POTASSIUM 3.7 mmol/L (3.5-5.1); SODIUM 139 mmol/L (136-145)
[2018-02-14 12:41] LABS: ALBUMIN 3.7 g/dL (3.4-5.0); ALKALINE PHOSPHATASE 50 U/L (46-116); CK-MB MASS < 0.5 ng/mL (<0.5-3.6); LIPASE 213 U/L (73-393); MAGNESIUM 1.9 mg/dL (1.8-2.4); NT-PRO BRAIN NAT PEPTIDE 58 pg/mL (<300); SGOT 20 U/L (15-37); SGPT 30 U/L (30-65); TOTAL BILIRUBIN 0.4 mg/dL (<0.1-1.0); TOTAL PROTEIN 6.7 g/dL (6.4-8.2); TROPONIN-I LEVEL <0.06 ng/mL (<0.06)
--- NOTE | 2018-02-14 15:33 | EKG ---
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
[2018-02-14 16:31] VITALS: BP 124/73
--- NOTE | 2018-02-15 11:15 | CON ---
[address] [address] CONSULTATION Name: DWAYNE RICO Room: [facility] FRANNY Rust#: [id number] Admission: 02/14/18 Attend Phys: Discharge: 02/14/18 Date of : 62 Report #: [id number] THIS REPORT FOR: //name// CC: Rg Barry [facility] physician/PCP Elvira Edward DATE OF SERVICE: 02/14/2018 Cardiology Consultation HISTORY OF PRESENT ILLNESS: The patient is a 57-year-old single white male who I was asked to see in the emergency room today after he complained of palpitations. The patient is originally from [place]. He currently lives with a girlfriend in [place]. He has a long history of hypertension. He chews tobacco. Strong family history of coronary artery disease. He actually presented here to [facility] on 01/17. He complained of chest tightness. He also has a history of an anxiety disorder and is followed by psychiatrist. He was seen by my nurse practitioner Laura Aguiar. He has actually had 2 previous heart catheterizations in [place] showing no high-grade stenosis. He was felt to be having unstable angina. I performed a cardiac catheterization on 01/18 from the right radial artery. The diagonal branch was subtotally occluded and filled only faintly. The circumflex had no significant disease. The circumflex has only 50% marginal branch stenosis. The LAD was normal. The right coronary artery had only 20% distal stenosis. Ejection fraction is 55%. He was given heparin and Aggrastat loaded with Plavix. I then performed angioplasty on the first diagonal branch and placed a single bare metal stent, which is 28 mm long x 2.25 mm in diameter. He tolerated the procedure well. There was a small branch of the diagonal that also has a stenosis. This is decided not to proceed with stenting since it was a small branch. He was then discharged on his home medications to include lisinopril-hydrochlorothiazide, Brilinta, Lipitor, and aspirin. After his discharge, it was realized that his insurance company will not pay for Brilinta and he was switched to Plavix. He was actually just readmitted days later with chest pain relieved with nitroglycerin. The patient was actually seen by Dr. Tovar at that time. He was placed on Imdur. He was then discharged. However, he came back to the emergency room 2 weeks later again with chest pain. He felt his heart racing. He was seen at that time by Dr. Osborne. On the monitor, he had a run of ventricular tachycardia. He was placed on amiodarone. He was loaded with amiodarone and discharged 5 days ago. The patient states that he has had no significant chest pain or shortness of breath. However, today he felt his heart pounding. He did have some shortness of breath, but no syncope. He called the ambulance and he was brought here to [facility]. PAST MEDICAL HISTORY: Otherwise significant for no major surgical procedures. He does have a history of hypertension, [place] [address] CONSULTATION Name: DWAYNE RICO Room: [facility] FRANNY Rust#: [id number] Admission: 02/14/18 Attend Phys: Discharge: 02/14/18 Date of : 62 Report #: [id number] MEDICATIONS: Consist of Plavix, aspirin, Lipitor, amiodarone, clonazepam, Imdur. ALLERGIES: He has an allergy to PENICILLIN and OPIOIDS. FAMILY HISTORY: His brother had a heart attack. SOCIAL HISTORY: He is single, lives in an apartment with his girlfriend in [place], chews tobacco. No alcohol abuse. REVIEW OF SYSTEMS: He has no history of stroke, asthma, peptic ulcer disease, liver disease. He has had kidney stone. No cancer. He had to see a psychiatrist in the past for anxiety disorder. No chronic skin condition. PHYSICAL EXAMINATION: GENERAL: Revealed a middle-aged male, appeared in no distress. VITAL SIGNS: In the emergency room, he had a blood pressure of 120/70, pulse 60. He is afebrile. HEENT: He is anicteric. Conjunctivae pink. Mucous members moist. NECK: Veins nondistended. No carotid bruits. Neck is supple. CHEST: Clear to auscultation. CARDIAC: Regular rate and rhythm. ABDOMEN: Soft. EXTREMITIES: Had no edema. Posterior tibial pulse 2+ bilaterally. SKIN: Warm, dry. NEUROLOGIC: Nonfocal. DATA: His ECG shows sinus bradycardia with small inferior Q waves. His workup in the emergency room today, he had CT scan of the chest without contrast that showed no acute abnormality or coronary artery calcification. He had CT scan of the abdomen without contrast that showed thickening of the colon suggesting colitis. He had a CT scan of the head without contrast that was unremarkable. His chest x-ray today is unremarkable. LABORATORY WORK: Sodium 139, creatinine 0.9. Liver function studies are normal. Troponin 0.06. Recent TSH 4.0. White blood cell count 6.4, hemoglobin 14.2. IMPRESSION AND RECOMMENDATIONS: 1. Coronary artery disease. Recent stent. I would continue aspirin and Plavix. 2. History of ventricular tachycardia. The patient on amiodarone. 3. Palpitations. I would recommend mailing the patient an event recorder to rule out arrhythmia. The patient is scheduled to follow up with Dr. Osborne. [address] [address] CONSULTATION Name: DWAYNE RICO Room: [facility] Yocasta#: [id number] Admission: 02/14/18 Attend Phys: Discharge: 02/14/18 Date of : 62 Report #: [id number] 4. Hypertension. The patient is on VEENA inhibitor. 5. Hyperlipidemia. The patient is on a statin drug. 6. Anxiety disorder. 7. Uses smokeless tobacco. <ELECTRONICALLY SIGNED> By: Freddy Lora MD, FACC 02/15/18 1115 [id number] Lora MD, FACC /nt
== END 2018-02-14 16:32 | disposition home or self-care (01) ==
LOC: M.ERS 11:53 → M.TBA-ER 13:16 → M.ERS 16:32
PROVIDERS: Family Medicine
DX: R07.9 Chest pain, unspecified (principal); R00.2 Palpitations; R00.0 Tachycardia, unspecified; R10.31 Right lower quadrant pain; F41.9 Anxiety disorder, unspecified; I25.10 Atherosclerotic heart disease of native coronary artery without angina pectoris; M06.9 Rheumatoid arthritis, unspecified; G62.9 Polyneuropathy, unspecified; Z88.6 Allergy status to analgesic agent; Z88.5 Allergy status to narcotic agent; Z88.0 Allergy status to penicillin; Z88.1 Allergy status to other antibiotic agents